=== PATIENT | male | born 1955 | race Two or more races ===

== ENCOUNTER 2025-04-04 18:55 | Outpatient (REF) | payer BC, SELFPAY ==
--- NOTE | ~2025-04-04 | MR_ITS ---
CLINICAL HISTORY: VERTIGO MR Brain without gadolinium Comparison: None Findings: No restricted diffusion. No intra-axial mass or hemorrhage. No midline shift. No hydrocephalus. Vascular flow voids are intact. 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 The orbits are normal. The sinuses and mastoid air cells are clear. No focal bone lesion. 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 Consider correlating with CT scan of the temporal bones. This document has been electronically signed by: Paco Avery MD on 04/05/2025 13:07:37
== END 2025-04-04 18:56 | disposition home or self-care (01) ==
LOC: HO.MRI 18:55
PROVIDERS: PCP Internal Medicine; Visit Provider Psychiatry & Neurology Neurology
DX: R42 Dizziness and giddiness (principal)
CPT/HCPCS: 70551

== ENCOUNTER → 2025-04-04 19:01 | Outpatient (BNV) | payer BC, SELFPAY | PROVIDERS: PCP Internal Medicine; Visit Provider Radiology Diagnostic Radiology | DX: R42 Dizziness and giddiness (principal) | CPT/HCPCS: 70551 ==